=== PATIENT | female | born 1995 | race Caucasian/White ===

== ENCOUNTER 2016-12-15 13:44 | Emergency (ER) | payer BC, OTHER ==
[2016-12-15 12:58] LABS: INFLUENZA A NEG (NEG); INFLUENZA B NEG (NEG)
[~2016-12-15 13:44] MED LIST: ALBUTEROL17 GM INH; AMOXICILLIN875 MG PO; ANTI INFLAM; BCP; DIFLUCAN PO; HYDROMET SYRUP480 ML PO; THERAFLU COLD1 EAC1 PO; VOLTAREN75 MG PO
== END 2016-12-15 14:00 | disposition home or self-care (01) ==
LOC: SED 13:44
PROVIDERS: Physician Assistant
DX: J01.90 Acute sinusitis, unspecified (principal); J30.2 Other seasonal allergic rhinitis; F17.200 Nicotine dependence, unspecified, uncomplicated
CPT/HCPCS: 87651; 87804; 99283

== ENCOUNTER 2017-06-13 23:10 | Emergency (ER) | payer BC, OTHER ==
[~2017-06-13] VITALS: Ht 162.6 cm; Wt 54.4 kg
== END 2017-06-14 01:28 | disposition home or self-care (01) ==
LOC: SED 23:10
DX: J02.9 Acute pharyngitis, unspecified (principal)
CPT/HCPCS: 87651; 99283

== ENCOUNTER 2017-06-30 08:22 | Emergency (ER) | payer OTHER ==
[2017-06-30 09:02] LABS: URINE SOURCE CLEAN CATCH
[2017-06-30 09:05] LABS: URINE APPEARANCE CLOUDY; URINE BILIRUBIN NEG (NEG); URINE BLOOD 3+ (NEG); URINE COLOR YELLOW; URINE GLUCOSE NEG (NORM); URINE KETONE NEG (NEG); URINE LEUKOCYTE ESTERASE 2+ (NEG); URINE NITRATE POS (NEG); URINE PROTEIN 1+ (NEG); URINE SPECIFIC GRAVITY 1.025 (1.003-1.035); URINE UROBILINOGEN 0.2 MG/DL (NORM)
[2017-06-30 09:34] LABS: MICRO INDICATED? YES
[2017-06-30 09:36] LABS: CULTURE INDICATED? YES; URINE BACTERIA 2+ (NEG); URINE RBC 25-50 /[HPF] (0-2); URINE SQUAMOUS EPITHELIAL CELL OCCAS /[HPF]; URINE WBC 100-200 /[HPF] (0-5)
== END 2017-06-30 09:59 | disposition home or self-care (01) ==
LOC: SED 08:22
PROVIDERS: Emergency Medicine
DX: N39.0 Urinary tract infection, site not specified (principal); F17.200 Nicotine dependence, unspecified, uncomplicated
CPT/HCPCS: 81003; 84703; 87086; 87088; 87186; 99283